=== PATIENT | male | born 1980 | race Hispanic/Latino ===

== ENCOUNTER 2025-03-14 10:31 | Day surgery (SDC) | payer OTHER ==
[2025-03-14] MEDS ORDERED: LIDOCAINE 1% MPF 5 ML VIAL ONE (11:25)
[2025-03-14] MEDS ORDERED: NA CHLORIDE 0.9% 500 ML ONE (11:34)
[2025-03-14 11:47] LABS: Absolute Lymphocytes (CBC) 1.3 K/uL (0.7-4.9); Hematocrit 44.8 % (39.6-49.0); Hemoglobin 14.8 g/dL (13.6-17.9); MCH 28.1 pg (27.0-35.0); MCHC 33.0 g/dL (32.0-36.0); MCV 85.0 fL (80-100); MPV 8.4 fL (7.6-11.3); Nucleated RBC Absolute Count 0.0 (0-0); Nucleated Red Blood Cells % 0.0 % (0-0); RBC Red Blood Cell Count 5.27 M/uL (4.33-5.43); White Blood Count 8.60 thou/uL (4.3-10.9)
[2025-03-14 12:02] LABS: Anion Gap 8.3 mEq/L (5.0-15.0); BUN Blood Urea Nitrogen 9.0 mg/dL (7-18); Glucose Level 106.0 mg/dL (74-106); Potassium 4.3 mEq/L (3.5-5.1)
[2025-03-14 13:57] VITALS: BP 118/73; O2SAT 98
--- NOTE | 2025-03-15 12:05 | TEE ---
TRANSESOPHAGEAL ECHOCARDIOGRAM REPORT CARDIOLOGY DEPARTMENT DATE OF STUDY: 03/15/2025 HEIGHT: 5'9" WEIGHT: 236 DIAGNOSIS: PATIENT FORAMEN OVALE EGG PROCESSOR COMMENTS: BUBBLE STUDY CARDIAC HISTORY: CATHERIZATION: SURGERY: PROSTHETIC VALVE: PACEMAKER: COMMENTS: NEGATIVE BUBBLE STUDY, NO INTERATRIAL SEPTAL DEFECT. TECHNOLOGIST: DR. STOLL/ KACEY WILKERSON
== END 2025-03-14 13:03 | disposition home or self-care (01) ==
LOC: EKG 10:31 → CCL 13:03
PROVIDERS: ATTEND Internal Medicine
DX: Q21.12 Patent foramen ovale (principal); I10 Essential (primary) hypertension; E11.9 Type 2 diabetes mellitus without complications; E78.2 Mixed hyperlipidemia; E66.9 Obesity, unspecified; Z86.73 Personal history of transient ischemic attack (TIA), and cerebral infarction without residual deficits; Z79.899 Other long term (current) drug therapy; Z82.49 Family history of ischemic heart disease and other diseases of the circulatory system
CPT/HCPCS: 93005; 93312; 85025; 80048; 36415; J2704; J2003; J7040; 01922